=== PATIENT | male | born 2000 | race Caucasian/White ===

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

== ENCOUNTER 2021-03-23 00:07 | Emergency (ER) | payer MEDICAID, OTHER ==
[~2021-03-23] VITALS: Ht 172.7 cm; Wt 104.2 kg
[2021-03-23] MEDS ORDERED: IBUPROFEN 600MG TABLET PO ONE (01:00)
[2021-03-23] MEDS ORDERED: ACETAMINOPHEN 325MG TABLET PO ONE (01:00)
[2021-03-23] MEDS ORDERED: HYDR-4001 MT ×2 (02:43→02:44)
[2021-03-23] MEDS ORDERED: NAP5EC MT ×3 (02:43→02:44)
[2021-03-23] MEDS ORDERED: HYDROCODONE/ACETAMINOPHEN 5/325MG TABLET PO ONE (02:45)
[2021-03-23 02:56] VITALS: BP 115/67
== END 2021-03-23 04:19 | disposition home or self-care (01) ==
LOC: ER 00:07
DX: S52.592A Other fractures of lower end of left radius, initial encounter for closed fracture (principal); W01.0XXA Fall on same level from slipping, tripping and stumbling without subsequent striking against object, initial encounter; Y93.89 Activity, other specified; Y92.89 Other specified places as the place of occurrence of the external cause; Y99.8 Other external cause status; Z98.890 Other specified postprocedural states
CPT/HCPCS: 29125; 73110; 73130; 99284